=== PATIENT | female | born 1995 | race Caucasian/White ===

== ENCOUNTER 2019-02-12 10:41 | Emergency (ER) | payer SELFPAY ==
[2019-02-12] MEDS: IBUPROFEN 600 MG TAB PO (13:01)
== END 2019-02-12 13:05 | disposition home or self-care (01) ==
LOC: FTE 10:41
DX: J06.9 Acute upper respiratory infection, unspecified (principal); J45.909 Unspecified asthma, uncomplicated
CPT/HCPCS: 99283